=== PATIENT | female | born 1960 | race Caucasian/White ===

== ENCOUNTER 2022-01-23 09:46 | Outpatient (CLI) | payer OTHER, SELFPAY ==
--- NOTE | 2022-01-23 09:50 | US_ITS ---
WS: [id number] ULTRASOUND ABDOMEN LIMITED CLINICAL INFORMATION: ELEVATED LIVER ENZYMES COMPARISON: None. FINDINGS: Liver Size: Enlarged Craniocaudal length: 17.7 cm. Echogenicity: Dense Surface nodularity: None. Mass (size and location): Simple hepatic cyst measuring 1.7 x 1.6 x 1.5 cm. Ill-defined hypoechoic le raine in the RIGHT hepatic lobe measuring 1.5 x 1.5 CM. This is nonspecific and recommend further eval uation with MRI liver without and with gadolinium enhancement. Peripheral vascularity in this area. Bile ducts Intrahepatic ducts: Normal. Common bile duct diameter: 0.5 cm. Gallbladder Normal. Gallstones: None. Gallbladder sludge: None. Gallbladder wall thickening: None. Pericholecystic fluid: None. Sonographic Mcduffie sign: Absent. Pancreas Normal as visualized. Right kidney: Normal. Hydronephrosis: None. Size: 9.2 cm x 4.5 cm x 4.6 cm. Abdominal aorta and IVC Visualized portions are normal. Ascites: None. US/US abdomen limited [id number] IMPRESSION: 1. Hepatomegaly with diffuse fatty infiltration. 2. Ill-defined hypoechoic lesion in the RIGHT hepatic lobe measuring 1.5 x 1.5 cm with peripheral vascularity. This is nonspecific and recommend further eval uation MRI liver without and with gadolinium enhancement. Metastatic disease no t excluded. 3. Incidental simple hepatic cyst measuring 1.7 x 1.6 x 1.5 cm 4. Normal gallbladder. 5. No hydronephrosis in RIGHT kidney.
== END 2022-01-23 09:47 | disposition home or self-care (01) ==
LOC: RAD 09:47
PROVIDERS: Visit Provider Nurse Practitioner
DX: R74.8 Abnormal levels of other serum enzymes (principal); K76.0 Fatty (change of) liver, not elsewhere classified; K76.89 Other specified diseases of liver
CPT/HCPCS: 76705

== ENCOUNTER 2023-03-24 13:25 | Outpatient (CLI) | payer OTHER, SELFPAY ==
[2023-03-24 14:12] LABS: Alanine Aminotransferase 30 U/L (0-33); Alkaline Phosphatase 150 U/L (35-105); Aspartate Amino Transferase 22 U/L (0-32); Globulin 2.8 g/dL (1.3-4.6); Total Bilirubin 0.2 mg/dL (0.15-1.2); Total Protein 6.8 g/dL (6.6-8.7)
== END 2023-03-24 13:26 | disposition home or self-care (01) ==
PROVIDERS: PCP Chiropractor; Visit Provider Chiropractor
DX: Z01.89 Encounter for other specified special examinations (principal)
CPT/HCPCS: 36415; 80076

== ENCOUNTER 2023-10-07 09:45 | Outpatient (CLI) | payer OTHER, SELFPAY | END 2023-10-07 09:46 | disposition home or self-care (01) | LOC: RT 09:45 | PROVIDERS: PCP Nurse Practitioner; Visit Provider Nurse Practitioner | DX: J44.9 Chronic obstructive pulmonary disease, unspecified (principal) | CPT/HCPCS: 94010; 94726; 94729 ==